=== PATIENT | male | born 1950 | race Caucasian/White ===

== ENCOUNTER 2017-08-14 12:26 | Day surgery (SDC) | payer OTHER ==
[~2017-08-14] VITALS: Ht 180.3 cm; Wt 82.3 kg
[~2017-08-14 12:26] MED LIST: ASPI325; FINA5; FISH OIL 1,0001 EAC2 PO; HYDACE5 PO; SIMV10
== END 2017-08-14 14:38 | disposition home or self-care (01) ==
LOC: ORSCSDS 12:26
PROVIDERS: Internal Medicine Gastroenterology
PROC: 0DJD8ZZ Inspection of Lower Intestinal Tract, Via Natural or Artificial Opening Endoscopic (ICD-10-PCS; principal; 2017-08-14 14:00)
DX: Z12.11 Encounter for screening for malignant neoplasm of colon (principal); E78.5 Hyperlipidemia, unspecified; Z79.82 Long term (current) use of aspirin; Z79.899 Other long term (current) drug therapy
CPT/HCPCS: J7120

== ENCOUNTER 2018-02-22 01:40 | Emergency (ER) | payer OTHER ==
[~2018-02-22] VITALS: Ht 154.9 cm; Wt 90.7 kg
[2018-02-22 02:33] LABS: Source, Urine Clean Catch
[2018-02-22 02:36] LABS: Bilirubin, Urine Neg (Neg); Blood, Urine 4+ (Neg); Glucose Qualitative, Urine Neg (Neg); Ketones, Urine Neg (Neg); Leukocyte Esterase, Urine Neg (Neg); Nitrite, Urine Neg (Neg); Protein, Urine Neg (Neg); Urobilinogen, Urine NORM (Normal)
[2018-02-22 02:37] LABS: Appearance, Urine Clear (Clear); Color, Urine Yellow (P-Yellow)
[2018-02-22 02:47] LABS: Bacteria Not Seen /hpf; Mucus Light (0-Heavy); Red Blood Cells, Urine 25-50 /hpf (0-2); Squamous Epithelial Cells Not Seen /hpf (Few); White Blood Cells, Urine Not Seen /hpf (0-5)
== END 2018-02-22 03:16 | disposition home or self-care (01) ==
LOC: ER 01:40
PROVIDERS: Emergency Medicine
DX: R33.9 Retention of urine, unspecified (principal); Z79.899 Other long term (current) drug therapy
CPT/HCPCS: 51702; 51798; 81001; 99283

== ENCOUNTER → 2018-03-18 | Outpatient (CLI) | payer OTHER ==
[2018-03-18 12:08] LABS: Source, Urine Catheter
[2018-03-18 12:25] LABS: Bilirubin, Urine Neg (Neg); Glucose Qualitative, Urine Neg (Neg); Nitrite, Urine Neg (Neg); Urobilinogen, Urine NORM (Normal)
[2018-03-18 12:27] LABS: Blood, Urine 5+ (Neg); Ketones, Urine 1+ (Neg); Protein, Urine 4+ (Neg)
[2018-03-18 13:19] LABS: Appearance, Urine Bloody (Clear); Color, Urine Red (P-Yellow)
[2018-03-18 13:23] LABS: Bacteria Mod /hpf; Leukocyte Esterase, Urine Neg (Neg); Red Blood Cells, Urine TNTC /hpf (0-2); Squamous Epithelial Cells Not Seen /hpf (Few)
== END ==
LOC: LAB SHORT 12:07 → LAB 12:07
PROVIDERS: Internal Medicine
DX: N39.0 Urinary tract infection, site not specified (principal)
CPT/HCPCS: 81001; 87077; 87086; 87186

== ENCOUNTER → 2018-12-10 | Outpatient (CLI) | payer OTHER | END | disposition home or self-care (01) | LOC: LAB UCHC 12:21 → LAB SHORT 12:21 | DX: N39.0 Urinary tract infection, site not specified (principal) | CPT/HCPCS: 87077; 87086; 87186 ==

== ENCOUNTER → 2018-12-22 | Outpatient (CLI) | payer OTHER ==
[2018-12-22 14:03] LABS: Bilirubin, Urine Neg (Neg); Blood, Urine 2+ (Neg); Glucose Qualitative, Urine Neg (Neg); Ketones, Urine Neg (Neg); Leukocyte Esterase, Urine 3+ (Neg); Nitrite, Urine Pos (Neg); Protein, Urine 2+ (Neg); Specific Gravity, Urine 1.025 (1.003-1.022); Urobilinogen, Urine 1+ (Normal)
[2018-12-22 14:13] LABS: Appearance, Urine Hazy (Clear); Color, Urine Yellow (P-Yellow)
[2018-12-22 14:14] LABS: Squamous Epithelial Cells Many /hpf (Few); White Blood Cells, Urine TNTC /hpf (0-5)
[2018-12-22 14:15] LABS: Bacteria Many /hpf
== END | disposition home or self-care (01) ==
LOC: LAB UCHC 12:21 → LAB SHORT 12:21
PROVIDERS: Internal Medicine
DX: N39.0 Urinary tract infection, site not specified (principal)
CPT/HCPCS: 81001; 87077; 87086; 87186

== ENCOUNTER → 2018-12-31 | Outpatient (CLI) | payer OTHER ==
[2018-12-31 18:12] LABS: Appearance, Urine Hazy (Clear); Bilirubin, Urine Neg (Neg); Blood, Urine 3+ (Neg); Color, Urine Yellow (P-Yellow); Glucose Qualitative, Urine Neg (Neg); Ketones, Urine Neg (Neg); Leukocyte Esterase, Urine 2+ (Neg); Nitrite, Urine Neg (Neg); Protein, Urine 2+ (Neg); Urobilinogen, Urine NORM (Normal)
[2018-12-31 18:35] LABS: White Blood Cells, Urine 25-50 /hpf (0-5)
[2018-12-31 18:36] LABS: Bacteria Few /hpf; Mucus Light (0-Heavy); Squamous Epithelial Cells Not Seen /hpf (Few)
== END | disposition home or self-care (01) ==
LOC: LAB SHORT 14:31 → LAB UCHC 14:31
PROVIDERS: Internal Medicine
DX: N39.0 Urinary tract infection, site not specified (principal)
CPT/HCPCS: 81001; 87077; 87086; 87186

== ENCOUNTER 2019-06-12 01:16 | Inpatient (IN) | payer OTHER ==
[~2019-06-12] VITALS: Ht 182.9 cm; Wt 70.3 kg
[~2019-06-12 01:16] MED LIST changes: -FINA5; +FINA5 PO; -SIMV10; +Zocor20 MG PO
[2019-06-12 02:32] LABS: Source, Urine Catheter
[2019-06-12 02:36] LABS: Appearance, Urine Clear (Clear); Blood, Urine 5+ (Neg); Color, Urine Amber (P-Yellow); Glucose Qualitative, Urine Neg (Neg); Ketones, Urine 1+ (Neg); Leukocyte Esterase, Urine 1+ (Neg); Nitrite, Urine Neg (Neg); Protein, Urine 3+ (Neg); Urobilinogen, Urine 3+ (Normal)
[2019-06-12 02:36] LABS: BASOPHILS ABSOLUTE AUTO 0.02 K/mm3 (0.00-0.23); BASOPHILS PERCENT AUTO 0 % (0-2); EOSINOPHILS PERCENT AUTO 0 % (0-6); Hematocrit 40.5 % (37.0-53.0); Hemoglobin 13.6 g/dL (13.5-17.5); IMMATURE GRAN ABSOLUTE AUTO 0.07 K/mm3 (0.00-0.10); IMMATURE GRAN PERCENT AUTO 0 % (0-1); LYMPHOCYTES ABSOLUTE AUTO 0.38 K/mm3 (0.84-5.20); LYMPHOCYTES PERCENT AUTO 2 % (21-46); MONOCYTES ABSOLUTE AUTO 0.76 K/mm3 (0.16-1.47); MONOCYTES PERCENT AUTO 5 % (4-13); Mean Corpuscular HGB 32.6 pg (26.0-34.0); Mean Corpuscular HGB Conc 33.6 g/dL (31.5-36.5); Mean Corpuscular Volume 97 fL (80-100); Mean Platelet Volume 12.4 fL (9.1-12.4); NEUTROPHILS ABSOLUTE AUTO 14.42 K/mm3 (1.96-9.15); NEUTROPHILS PERCENT AUTO 92 % (41-73); Platelet Count 159 K/mm3 (150-400); RDW Coefficient Variation 12.3 % (11.7-14.2); RDW Standard Deviation 44.3 fL (35.1-46.3); Red Blood Cell Count 4.17 M/mm3 (4.30-5.90); White Blood Cell Count 15.65 K/mm3 (4.00-11.30)
[2019-06-12 02:37] LABS: Bilirubin, Urine 2+ (Neg)
[2019-06-12 02:42] LABS: Bacteria Many /hpf; Granular Casts 0-2 /lpf (0); Red Blood Cells, Urine 0-2 /hpf (0-2); Squamous Epithelial Cells Few /hpf (Few)
[2019-06-12 02:43] LABS: Mucus Light (0-Heavy)
[2019-06-12 02:53] LABS: Alanine Aminotransfer (ALT/SGP 1129 U/L (12-78); Albumin, Blood 3.4 g/dL (3.4-5.0); Albumin/Globulin Ratio 0.9 (0.8-1.8); Alk Phos 186 U/L (50-136); Anion Gap 9 mmol/L (6-16); Aspartate Aminotrans (AST/SGOT 924 U/L (12-37); Blood Urea Nitrogen 27 mg/dL (8-24); Bun/Creatinine Ratio 23.7 (12.0-20.0); CO2, Blood 24 mmol/L (21-32); Calcium, Blood 8.7 mg/dL (8.5-10.1); Chloride, Blood 107 mmol/L (98-108); Creatinine, Blood 1.14 mg/dL (0.60-1.20); Globulin, Blood 3.6 g/dL (2.2-4.0); Glomerular Filtration Rate >60 (60-); Glucose, Blood 107 mg/dL (70-99); Magnesium, Blood 2.1 mg/dL (1.6-2.4); Potassium, Blood 3.8 mmol/L (3.5-5.5); Sodium, Blood 140 mmol/L (136-145); Troponin I <0.015 ng/mL (0.000-0.040)
[2019-06-12] MEDS ORDERED: CEPH500 PO (05:28)
[2019-06-12] MEDS ORDERED: NITR100CA PO (05:29)
[2019-06-12] MEDS ORDERED: TAMS.4ER PO (05:29)
[2019-06-12 06:08] LABS: Acetaminophen, Random <2.0 ug/mL (10.0-30.0); Salicylate <1.7 mg/dL (2.8-20.0)
--- NOTE | 2019-06-12 14:00 | NUR ---
PT TO SURGICAL FLOOR. NO PAIN OR NAUSEA. FAMILY AT BEDSIDE
--- NOTE | 2019-06-12 17:18 | NUR ---
SHIFT SUMMARY PT IS S/P MELODY ESCOBEDO WITH DR PALACIOS TODAY. PT HAS HAD NO COMPLAINTS OF PAIN TO ABDOMEN. REPORTS DISCOMFORT IN SHOULDER/NECK WHICH IS CHRONIC. FAMILY HAS BEEN IN WITH PT TODAY. PT HAS SOME DEVELOPMENTAL DELAY AND LIVES WITH FATHER. CARMICHAEL IN PLACE, PLAN IS TO DC CARMICHAEL IN MORNING PER HOSPITALIST. ASSISTED WTIH ADL'S PRN.
[2019-06-13 04:49] LABS: BASOPHILS ABSOLUTE AUTO 0.02 K/mm3 (0.00-0.23); BASOPHILS PERCENT AUTO 0 % (0-2); EOSINOPHILS PERCENT AUTO 0 % (0-6); Hematocrit 37.9 % (37.0-53.0); Hemoglobin 12.7 g/dL (13.5-17.5); IMMATURE GRAN ABSOLUTE AUTO 0.08 K/mm3 (0.00-0.10); IMMATURE GRAN PERCENT AUTO 1 % (0-1); LYMPHOCYTES ABSOLUTE AUTO 0.46 K/mm3 (0.84-5.20); LYMPHOCYTES PERCENT AUTO 4 % (21-46); MONOCYTES ABSOLUTE AUTO 0.62 K/mm3 (0.16-1.47); MONOCYTES PERCENT AUTO 5 % (4-13); Mean Corpuscular HGB 32.6 pg (26.0-34.0); Mean Corpuscular HGB Conc 33.5 g/dL (31.5-36.5); Mean Corpuscular Volume 97 fL (80-100); Mean Platelet Volume 12.4 fL (9.1-12.4); NEUTROPHILS ABSOLUTE AUTO 10.35 K/mm3 (1.96-9.15); NEUTROPHILS PERCENT AUTO 90 % (41-73); Platelet Count 143 K/mm3 (150-400); RDW Coefficient Variation 12.7 % (11.7-14.2); RDW Standard Deviation 45.2 fL (35.1-46.3); White Blood Cell Count 11.53 K/mm3 (4.00-11.30)
[2019-06-13 05:12] LABS: Alanine Aminotransfer (ALT/SGP 635 U/L (12-78); Albumin, Blood 2.6 g/dL (3.4-5.0); Albumin/Globulin Ratio 0.8 (0.8-1.8); Alk Phos 154 U/L (50-136); Anion Gap 8 mmol/L (6-16); Aspartate Aminotrans (AST/SGOT 324 U/L (12-37); Bilirubin, Total 1.4 mg/dL (0.1-1.0); Blood Urea Nitrogen 26 mg/dL (8-24); Bun/Creatinine Ratio 20.5 (12.0-20.0); CO2, Blood 23 mmol/L (21-32); Calcium, Blood 8.3 mg/dL (8.5-10.1); Chloride, Blood 111 mmol/L (98-108); Creatinine, Blood 1.27 mg/dL (0.60-1.20); Globulin, Blood 3.4 g/dL (2.2-4.0); Glomerular Filtration Rate >60 (60-); Glucose, Blood 123 mg/dL (70-99); Potassium, Blood 4.2 mmol/L (3.5-5.5); Sodium, Blood 142 mmol/L (136-145)
--- NOTE | 2019-06-13 06:16 | NUR ---
SHIFT SUMMARY STILL CONTINUES TO DENY PAIN. STATES THAT HE HAS HAD SOME GAS BUBBLES MOVE AROUND IN HIS BELLY. ABLE TO RE ADJUST SELF IN BED NEEDED. LAP SITES X4 TO ABD ARE C/D/I. STATES THAT HE MISSES HIS CAT THAT AND THAT HE KNOWS THAT HE WENT TO [facility]. DENIES FURTHER NEEDS OR WANTS AT THIS TIME. SAFETY MEASURES IN PLACE. WILL GIVE HAND OFF TO ONCOMING SHIFT USING SBAR.
--- NOTE | 2019-06-13 09:44 | NUR ---
PT REPORTING PAIN AT INCISION SITE. DR NOTIFIED, SEE ORDERS.
--- NOTE | 2019-06-13 14:06 | NUR ---
DR WHITMAN HERE TALKING WITH FAMILY PER FAMILY REQ.
--- NOTE | 2019-06-13 15:16 | NUR ---
DR GUZMÁN BEEN TO SEE PT. FAMILY PRESENT.
--- NOTE | 2019-06-13 16:18 | NUR ---
SHIFT SUMMARY PT TOLERATING DIET. PT BEEN ASSISTED WITH ADL'S PRN. PT BEEN MED FOR PAIN PRN. PO INTAKE BEEN ENCOURAGED. PT VOIDING. PT BEEN SEEN BY DR GUZMÁN AND DR WHITMAN TODAY. PT AMBULATING TO BATHROOM. ENC PT TO AMBULATE IN HALLWAY WITH ASSIST, PT "MAYBE LATER, NOT NOW". FAMILY CONT TO BE IN ROOM.
[2019-06-14 04:26] LABS: BASOPHILS ABSOLUTE AUTO 0.04 K/mm3 (0.00-0.23); BASOPHILS PERCENT AUTO 1 % (0-2); EOSINOPHILS ABSOLUTE AUTO 0.02 K/mm3 (0.00-0.68); EOSINOPHILS PERCENT AUTO 0 % (0-6); Hematocrit 40.4 % (37.0-53.0); Hemoglobin 13.1 g/dL (13.5-17.5); IMMATURE GRAN ABSOLUTE AUTO 0.03 K/mm3 (0.00-0.10); IMMATURE GRAN PERCENT AUTO 0 % (0-1); LYMPHOCYTES ABSOLUTE AUTO 0.77 K/mm3 (0.84-5.20); LYMPHOCYTES PERCENT AUTO 10 % (21-46); MONOCYTES ABSOLUTE AUTO 0.59 K/mm3 (0.16-1.47); MONOCYTES PERCENT AUTO 8 % (4-13); Mean Corpuscular HGB 32.1 pg (26.0-34.0); Mean Corpuscular HGB Conc 32.4 g/dL (31.5-36.5); Mean Corpuscular Volume 99 fL (80-100); Mean Platelet Volume 12.7 fL (9.1-12.4); NEUTROPHILS ABSOLUTE AUTO 6.22 K/mm3 (1.96-9.15); NEUTROPHILS PERCENT AUTO 81 % (41-73); Platelet Count 140 K/mm3 (150-400); RDW Coefficient Variation 12.5 % (11.7-14.2); RDW Standard Deviation 45.7 fL (35.1-46.3); Red Blood Cell Count 4.08 M/mm3 (4.30-5.90); White Blood Cell Count 7.67 K/mm3 (4.00-11.30)
[2019-06-14 04:44] LABS: Alanine Aminotransfer (ALT/SGP 458 U/L (12-78); Albumin, Blood 2.5 g/dL (3.4-5.0); Albumin/Globulin Ratio 0.7 (0.8-1.8); Alk Phos 136 U/L (50-136); Anion Gap 9 mmol/L (6-16); Aspartate Aminotrans (AST/SGOT 136 U/L (12-37); Blood Urea Nitrogen 23 mg/dL (8-24); Bun/Creatinine Ratio 19.2 (12.0-20.0); CO2, Blood 23 mmol/L (21-32); Calcium, Blood 8.2 mg/dL (8.5-10.1); Chloride, Blood 110 mmol/L (98-108); Globulin, Blood 3.7 g/dL (2.2-4.0); Glomerular Filtration Rate >60 (60-); Glucose, Blood 93 mg/dL (70-99); Potassium, Blood 3.9 mmol/L (3.5-5.5); Sodium, Blood 142 mmol/L (136-145); Total Protein, Blood 6.2 g/dL (6.4-8.2)
--- NOTE | 2019-06-14 05:07 | NUR ---
SHIFT SUMMARY: INDU IS A&OX2. HE KNOWS HIMSELF AND WHERE HE IS. HE IS ABLE TO MAKE HIS NEEDS KNOWN. HE DOES SOMETIMES FORGET TO USE THE CALL LIGHT AND INSTEAD CALLS OUT DOWN THE HALLWAY. HE IS URINATING WITHOUT DIFFICULTIES, HE DOES REQUIRE MINIMAL ASSISTANCE TO USE THE URINAL. HE IS TOLERATING PO INTAKE WELL. HE RESTED COMFORTABLY INTERMITTENTLY THROUGHOUT THE SHIFT. INCISIONS ON HIS ABDOMEN X 4 C/D&I. HE DID COMPLAIN OF LEFT SHOULDER PAIN ON AND OFF FOR WHICH THE PO PAIN MEDICATION WAS EFFECTIVE. HIS AST AND ALT CONTINUE TO TREND DOWN. IV PATENT. HE IS LYING COMFORTABLY IN BED WITH HIS CALL LIGHT IN REACH, SCDs IN PLACE. BED ALARM ON.
[2019-06-14] MEDS ORDERED: ACET325 PO (08:38)
[2019-06-14] MEDS ORDERED: MIRALAX17 G1 PO (08:38)
--- NOTE | 2019-06-14 08:41 | NUR ---
DR WHITMAN HERE RECENTLY TO SEE PT.
--- NOTE | 2019-06-14 12:11 | NUR ---
DISCHARGE: PT EATING AND DRINKING. PAIN CONTROLLED WITH PO PAIN MEDICATION. PT VOIDING, PASSING GAS. PT CLEARED TO BE DISCHARGED BY SURGEON TO GO HOME. PT FAMILY REPORTS UNDERSTANDING OF DISCHARGE INSTRUCTIONS, PAPERWORK INCLUDING SCRIPTS SENT WITH PT. IV WAS OUT WNL EARLIER TODAY. FAMILY ASSISTING WITH RIDE HOME. FAMILY REPORTS HAVING APPR EQUIP AND HELP AT HOME.
== END 2019-06-14 12:03 | disposition home or self-care (01) | DRG 854 ==
LOC: ER 01:16 → SURS 10:29
PROVIDERS: Emergency Medicine; Hospitalist; ADMIT Surgery
PROC: BF131ZZ Fluoroscopy of Gallbladder and Bile Ducts using Low Osmolar Contrast (ICD-10-PCS; 2019-06-12)
PROC: 0FT44ZZ Resection of Gallbladder, Percutaneous Endoscopic Approach (ICD-10-PCS; principal; 2019-06-12 11:30)
DX: A41.9 Sepsis, unspecified organism (principal); K80.00 Calculus of gallbladder with acute cholecystitis without obstruction; R62.50 Unspecified lack of expected normal physiological development in childhood; Z90.79 Acquired absence of other genital organ(s); E78.5 Hyperlipidemia, unspecified; K59.00 Constipation, unspecified; N40.1 Benign prostatic hyperplasia with lower urinary tract symptoms; R35.0 Frequency of micturition
CPT/HCPCS: 36415; 51702; 71046; 74176; 74181; 74300; 76705; 80053; 81001; 83605; 83690; 83735; 84145; 84484; 85025; 87040; 87086; 88304; 90686; 93005; 93010; 96361-59; 96365-59; 96366-59; 96375-59; 99285-25; A9270-GY; C1729; G0480; J1100; J1170; J1200; J1650; J1885; J2250; J2405; J2543; J2704; J2710; J3010; J7030; J7120

== ENCOUNTER → 2019-07-14 | Outpatient (CLI) | payer OTHER ==
[~2019-07-14] MED LIST changes: +ACET325 PO; +CEPH500 PO; +MIRALAX17 G1 PO; +NITR100CA PO; +TAMS.4ER PO
[2019-07-14 12:31] LABS: Bilirubin, Urine Neg (Neg); Blood, Urine 2+ (Neg); Glucose Qualitative, Urine Neg (Neg); Ketones, Urine Neg (Neg); Leukocyte Esterase, Urine 1+ (Neg); Nitrite, Urine Neg (Neg); Protein, Urine 1+ (Neg); Specific Gravity, Urine 1.025 (1.003-1.022); Urobilinogen, Urine NORM (Normal)
[2019-07-14 12:41] LABS: Appearance, Urine Clear (Clear); Color, Urine Yellow (P-Yellow)
[2019-07-14 12:45] LABS: Bacteria Rare /hpf; Calcium Oxalate Crystals Rare /hpf; Squamous Epithelial Cells Few /hpf (Few)
== END | disposition home or self-care (01) ==
LOC: LAB UCHC 10:00 → LAB SHORT 10:00
PROVIDERS: Internal Medicine
DX: N39.0 Urinary tract infection, site not specified (principal)
CPT/HCPCS: 81001; 87086

== ENCOUNTER → 2024-05-03 | Outpatient (CLI) | payer OTHER ==
[2024-05-03 15:02] LABS: BASOPHILS ABSOLUTE AUTO 0.06 K/mm3 (0.00-0.23); BASOPHILS PERCENT AUTO 1 % (0-2); EOSINOPHILS ABSOLUTE AUTO 0.16 K/mm3 (0.00-0.68); EOSINOPHILS PERCENT AUTO 2 % (0-6); Hematocrit 45.2 % (37.0-53.0); Hemoglobin 15.4 g/dL (13.5-17.5); IMMATURE GRAN ABSOLUTE AUTO 0.02 K/mm3 (0.00-0.10); IMMATURE GRAN PERCENT AUTO 0 % (0-1); LYMPHOCYTES ABSOLUTE AUTO 0.99 K/mm3 (0.84-5.20); LYMPHOCYTES PERCENT AUTO 10 % (21-46); MONOCYTES ABSOLUTE AUTO 0.63 K/mm3 (0.16-1.47); MONOCYTES PERCENT AUTO 7 % (4-13); Mean Corpuscular HGB 33.3 pg (26.0-34.0); Mean Corpuscular HGB Conc 34.1 g/dL (31.5-36.5); Mean Corpuscular Volume 98 fL (80-100); NEUTROPHILS ABSOLUTE AUTO 7.62 K/mm3 (1.96-9.15); NEUTROPHILS PERCENT AUTO 81 % (41-73); Platelet Count 226 K/mm3 (150-400); RDW Coefficient Variation 12.3 % (11.7-14.2); RDW Standard Deviation 44.1 fL (35.1-46.3); Red Blood Cell Count 4.62 M/mm3 (4.30-5.90); White Blood Cell Count 9.48 K/mm3 (4.00-11.30)
[2024-05-03 15:29] LABS: Alanine Aminotransfer (ALT/SGP 17 U/L (12-78); Albumin, Blood 3.7 g/dL (3.4-5.0); Albumin/Globulin Ratio 1.1 (0.8-1.8); Alk Phos 86 U/L (50-136); Anion Gap 10 mmol/L (3-11); Aspartate Aminotrans (AST/SGOT 17 U/L (12-37); Bilirubin, Total 0.5 mg/dL (0.1-1.0); Blood Urea Nitrogen 22 mg/dL (8-24); Bun/Creatinine Ratio 16.7 (12.0-20.0); CHOL/HDL RATIO 2.7; CO2, Blood 27 mmol/L (21-32); Calcium, Blood 9.3 mg/dL (8.5-10.1); Chloride, Blood 111 mmol/L (98-108); Cholesterol 138 mg/dL (50-200); Creatinine, Blood 1.32 mg/dL (0.60-1.20); Globulin, Blood 3.4 g/dL (2.2-4.0); Glomerular Filtration Rate 57 (60-); Glucose, Blood 98 mg/dL (70-99); HDL Cholesterol 52 mg/dL (>39); LDL/HDL RATIO 1.3; Low Density Lipoprotein Chol 68 mg/dL (0-110); Potassium, Blood 4.5 mmol/L (3.5-5.5); Sodium, Blood 143 mmol/L (136-145); Total Protein, Blood 7.1 g/dL (6.4-8.2); Triglycerides 91 mg/dL (30-160); Very Low Density Lipoprot Chol 18 mg/dL (6-32)
== END ==
LOC: LAB 13:57 → LAB SHORT 13:57
PROVIDERS: Internal Medicine
DX: E78.2 Mixed hyperlipidemia (principal); G20.B1 Parkinson's disease with dyskinesia, without mention of fluctuations
CPT/HCPCS: 80053; 80061; 85025

== ENCOUNTER 2025-03-22 06:20 | Day surgery (SDC) | payer OTHER ==
[2025-03-22] VITALS (8 sets, daily range): BP systolic 113–136; BP diastolic 64–89
[~2025-03-22] VITALS: Ht 175.3 cm; Wt 77.5 kg
[~2025-03-22 06:20] MED LIST changes: +Aspir 8181 MG PO; +BETA.05TCA TOP; +CARBLEV25 SL; +CeFAZolin Sodium 2,000 MG in NS 100 ML IV SCH; +DOCU100 PO; +FLAX PO; +MAGCIT300 PO; +MEGA 3-6-9 SO1233 MG PO; -MIRALAX17 G1 PO; +MIRALAX17 GM PO; +MULTI-VITAMIN1 EAC2 PO; +PSYLLIUM FIBER0.4 GM PO
[2025-03-22] MEDS ORDERED: Bupivacaine 0.5% HCl 5 MG/ML 30MLVIAL ONE (06:58)
--- NOTE | 2025-03-22 06:58 | NUR ---
Wheelchaired into Day Surgery. History, Chart, Medications and Allergies reviewed before start of procedure. Pre-Op teaching done. Pt verbalizes understanding. Patient States Post-Procedure ride home has been arranged.
[2025-03-22] MEDS ORDERED: FentaNYL Citrate 50 MCG/ML 5 ML Injection ONE (07:05)
[2025-03-22] MEDS ORDERED: FentaNYL Citrate 50 MCG/ML 2 ML Injection IV PRN ×2 (07:25→07:30)
[2025-03-22] MEDS ORDERED: Morphine Sulfate 4 MG/1 ML Injection IV PRN (07:25)
[2025-03-22] MEDS ORDERED: Metoclopramide HCl 5MG / ML 2ML Vial IV PRN (07:30)
[2025-03-22] MEDS ORDERED: HYDROmorphone HCl/Pf 1MG SYR IV PRN (07:30)
[2025-03-22] MEDS ORDERED: Ondansetron HCl 2 MG / ML 2ML Vial IV PRN (07:30)
[2025-03-22] MEDS ORDERED: Ondansetron HCl 2 MG / ML 2ML Vial ONE (07:53)
[2025-03-22] MEDS ORDERED: Rocuronium Bromide 10 MG/ML 5ML Injection IV ONE (07:53)
[2025-03-22] MEDS ORDERED: Metoclopramide HCl 5MG / ML 2ML Vial ONE (07:53)
[2025-03-22] MEDS ORDERED: Sugammadex Sodium 200 MG/2ML SDV (100 MG/ML) ONE (08:26)
[2025-03-22] MEDS ORDERED: HYDROcodone 5-APAP 325 TAB PO PRN (09:00)
--- NOTE | 2025-03-22 09:49 | NUR ---
PT'S CAREGIVER TRINO BEYER . PT SITTING UP EATING APPLE SAUCE AND DRINKING WATER.
--- NOTE | 2025-03-22 10:18 | NUR ---
PT'S HORSE RIDING COACH OR INSTRUCTOR TRINO GETTING PT DRESSED. D/C INSTRUCTIONS GIVEN TO CAREGIVER ALONG W/ RX FOR NORCO. Discharged via PERSONAL wheelchair to private [facility] for ride TO [facility]. VSS ON RA. PT JOKING W/STAFF AND TOLERATING PO. DRESSING REMAINS CDI
== END 2025-03-22 10:20 | disposition home or self-care (01) ==
LOC: ORSCMMR 06:20 → ORD 07:30 → ORSCMMR 10:20
PROVIDERS: Surgery
PROC: 0YU50JZ Supplement Right Inguinal Region with Synthetic Substitute, Open Approach (ICD-10-PCS; principal; 2025-03-22 07:30)
DX: K40.30 Unilateral inguinal hernia, with obstruction, without gangrene, not specified as recurrent (principal); D17.6 Benign lipomatous neoplasm of spermatic cord; F72 Severe intellectual disabilities; Z79.899 Other long term (current) drug therapy
CPT/HCPCS: A9270; C1781; J0690; J2405; J2704; J2765; J3010; J7120